=== PATIENT | male | born 1960 | race African-American/Black ===

== ENCOUNTER 2024-03-07 10:15 | Outpatient (CLI) | payer MEDICARE, OTHER | END 2024-03-07 10:16 | disposition home or self-care (01) | LOC: CSHWCC 10:15 | PROVIDERS: ATTEND Family Medicine | DX: L97.215 Non-pressure chronic ulcer of right calf with muscle involvement without evidence of necrosis (principal); L97.113 Non-pressure chronic ulcer of right thigh with necrosis of muscle; F10.20 Alcohol dependence, uncomplicated; I73.9 Peripheral vascular disease, unspecified; Z89.511 Acquired absence of right leg below knee | CPT/HCPCS: 97597; 97598 ==

== ENCOUNTER 2024-03-14 15:26 | Outpatient (CLI) | payer OTHER | END 2024-03-14 15:27 | disposition home or self-care (01) | LOC: CSHWCC 15:26 | PROVIDERS: ATTEND Nurse Practitioner Family | DX: L97.215 Non-pressure chronic ulcer of right calf with muscle involvement without evidence of necrosis (principal); L97.113 Non-pressure chronic ulcer of right thigh with necrosis of muscle; F10.20 Alcohol dependence, uncomplicated; I73.9 Peripheral vascular disease, unspecified; Z89.511 Acquired absence of right leg below knee | CPT/HCPCS: 11042; 11045 ==

== ENCOUNTER 2024-03-21 15:24 | Outpatient (CLI) | payer OTHER | END 2024-03-21 15:25 | disposition home or self-care (01) | LOC: CSHWCC 15:24 | PROVIDERS: ATTEND Family Medicine | DX: L97.215 Non-pressure chronic ulcer of right calf with muscle involvement without evidence of necrosis (principal); L97.113 Non-pressure chronic ulcer of right thigh with necrosis of muscle; I73.9 Peripheral vascular disease, unspecified; F10.20 Alcohol dependence, uncomplicated; Z89.511 Acquired absence of right leg below knee | CPT/HCPCS: 97597; 97598 ==

== ENCOUNTER 2024-04-12 15:20 | Outpatient (CLI) | payer OTHER | END 2024-04-12 15:21 | disposition home or self-care (01) | LOC: CSHWCC 15:20 | PROVIDERS: ATTEND Nurse Practitioner Family | DX: L97.212 Non-pressure chronic ulcer of right calf with fat layer exposed (principal); L97.112 Non-pressure chronic ulcer of right thigh with fat layer exposed; I73.9 Peripheral vascular disease, unspecified; F10.20 Alcohol dependence, uncomplicated; Z89.511 Acquired absence of right leg below knee | CPT/HCPCS: 11043; 11046 ==

== ENCOUNTER 2024-04-18 11:14 | Outpatient (CLI) | payer OTHER | END 2024-04-18 11:15 | disposition home or self-care (01) | LOC: CSHWCC 11:14 | PROVIDERS: ATTEND Nurse Practitioner Family | DX: L97.212 Non-pressure chronic ulcer of right calf with fat layer exposed (principal); L97.112 Non-pressure chronic ulcer of right thigh with fat layer exposed; I73.9 Peripheral vascular disease, unspecified; F10.20 Alcohol dependence, uncomplicated; Z89.511 Acquired absence of right leg below knee | CPT/HCPCS: 11042; 11045 ==

== ENCOUNTER 2024-04-25 12:03 | Outpatient (CLI) | payer OTHER | END 2024-04-25 12:04 | disposition home or self-care (01) | LOC: CSHWCC 12:03 | PROVIDERS: ATTEND Preventive Medicine Undersea and Hyperbaric Medicine | DX: L97.212 Non-pressure chronic ulcer of right calf with fat layer exposed (principal); L97.112 Non-pressure chronic ulcer of right thigh with fat layer exposed; I73.9 Peripheral vascular disease, unspecified; F10.20 Alcohol dependence, uncomplicated; Z89.511 Acquired absence of right leg below knee | CPT/HCPCS: 99214; G0463 ==

== ENCOUNTER 2024-05-03 11:45 | Outpatient (CLI) | payer OTHER | END 2024-05-03 11:46 | disposition home or self-care (01) | LOC: CSHWCC 11:45 | PROVIDERS: ATTEND Nurse Practitioner Family | DX: Z47.81 Encounter for orthopedic aftercare following surgical amputation (principal); L97.212 Non-pressure chronic ulcer of right calf with fat layer exposed; L97.112 Non-pressure chronic ulcer of right thigh with fat layer exposed; I73.9 Peripheral vascular disease, unspecified; F10.20 Alcohol dependence, uncomplicated; Z89.511 Acquired absence of right leg below knee ==

== ENCOUNTER 2024-05-06 10:34 | Outpatient (CLI) | payer OTHER | END 2024-05-06 10:35 | disposition home or self-care (01) | LOC: CSHWCC 10:34 | PROVIDERS: ATTEND Nurse Practitioner Family | DX: L97.212 Non-pressure chronic ulcer of right calf with fat layer exposed (principal); L97.112 Non-pressure chronic ulcer of right thigh with fat layer exposed; F10.20 Alcohol dependence, uncomplicated; I73.9 Peripheral vascular disease, unspecified; Z89.511 Acquired absence of right leg below knee | CPT/HCPCS: 99213; G0463 ==

== ENCOUNTER 2024-05-13 10:13 | Outpatient (CLI) | payer OTHER | END 2024-05-13 10:14 | disposition home or self-care (01) | LOC: CSHWCC 10:13 | PROVIDERS: ATTEND Nurse Practitioner Family | DX: L97.212 Non-pressure chronic ulcer of right calf with fat layer exposed (principal); L97.112 Non-pressure chronic ulcer of right thigh with fat layer exposed; F10.20 Alcohol dependence, uncomplicated; I73.9 Peripheral vascular disease, unspecified; Z89.511 Acquired absence of right leg below knee | CPT/HCPCS: 99211; G0463 ==

== ENCOUNTER 2024-05-20 08:36 | Outpatient (CLI) | payer OTHER | END 2024-05-20 08:37 | disposition home or self-care (01) | LOC: CSHWCC 08:36 | PROVIDERS: ATTEND Nurse Practitioner Family | DX: L97.212 Non-pressure chronic ulcer of right calf with fat layer exposed (principal); L97.112 Non-pressure chronic ulcer of right thigh with fat layer exposed; I73.9 Peripheral vascular disease, unspecified; F10.20 Alcohol dependence, uncomplicated; Z89.511 Acquired absence of right leg below knee | CPT/HCPCS: 99212; G0463 ==

== ENCOUNTER 2024-05-30 13:11 | Outpatient (CLI) | payer OTHER | END 2024-05-30 13:12 | disposition home or self-care (01) | LOC: CSHWCC 13:11 | PROVIDERS: ATTEND Nurse Practitioner Family | DX: L97.212 Non-pressure chronic ulcer of right calf with fat layer exposed (principal); L97.112 Non-pressure chronic ulcer of right thigh with fat layer exposed; I73.9 Peripheral vascular disease, unspecified; F10.20 Alcohol dependence, uncomplicated; Z89.511 Acquired absence of right leg below knee | CPT/HCPCS: 11043; 97597 ==

== ENCOUNTER 2024-07-20 10:23 | Outpatient (CLI) | payer MEDICAID, OTHER | END 2024-07-20 10:24 | disposition home or self-care (01) | LOC: CSHWCC 10:23 | PROVIDERS: ATTEND Nurse Practitioner Family | DX: L97.112 Non-pressure chronic ulcer of right thigh with fat layer exposed (principal); L97.212 Non-pressure chronic ulcer of right calf with fat layer exposed; I73.9 Peripheral vascular disease, unspecified; F10.20 Alcohol dependence, uncomplicated; Z89.511 Acquired absence of right leg below knee | CPT/HCPCS: 11042; 11043; 87070; 87077; 87186; 87205 ==

== ENCOUNTER 2024-07-27 09:00 | Outpatient (CLI) | payer OTHER | END 2024-07-27 09:01 | disposition home or self-care (01) | LOC: CSHWCC 09:00 | PROVIDERS: ATTEND Nurse Practitioner Family | DX: L97.212 Non-pressure chronic ulcer of right calf with fat layer exposed (principal); L97.112 Non-pressure chronic ulcer of right thigh with fat layer exposed; I73.9 Peripheral vascular disease, unspecified; F10.20 Alcohol dependence, uncomplicated; Z89.511 Acquired absence of right leg below knee | CPT/HCPCS: 11042; 11043 ==

== ENCOUNTER 2024-08-09 10:42 | Outpatient (CLI) | payer OTHER | END 2024-08-09 10:43 | disposition home or self-care (01) | LOC: CSHWCC 10:42 | PROVIDERS: ATTEND Nurse Practitioner Family | DX: L97.212 Non-pressure chronic ulcer of right calf with fat layer exposed (principal); L97.112 Non-pressure chronic ulcer of right thigh with fat layer exposed; I73.9 Peripheral vascular disease, unspecified; F10.20 Alcohol dependence, uncomplicated; Z89.511 Acquired absence of right leg below knee | CPT/HCPCS: 11042 ==

== ENCOUNTER 2024-08-16 09:05 | Outpatient (CLI) | payer OTHER | END 2024-08-16 09:06 | disposition home or self-care (01) | LOC: CSHWCC 09:05 | PROVIDERS: ATTEND Nurse Practitioner Family | DX: L97.212 Non-pressure chronic ulcer of right calf with fat layer exposed (principal); L97.112 Non-pressure chronic ulcer of right thigh with fat layer exposed; I73.9 Peripheral vascular disease, unspecified; F10.20 Alcohol dependence, uncomplicated; Z89.511 Acquired absence of right leg below knee | CPT/HCPCS: 11042 ==

== ENCOUNTER 2024-09-05 13:24 | Outpatient (CLI) | payer OTHER | END 2024-09-05 13:25 | disposition home or self-care (01) | LOC: CSHWCC 13:24 | PROVIDERS: ATTEND Nurse Practitioner Family | DX: L97.112 Non-pressure chronic ulcer of right thigh with fat layer exposed (principal); I73.9 Peripheral vascular disease, unspecified; F10.20 Alcohol dependence, uncomplicated; Z89.511 Acquired absence of right leg below knee | CPT/HCPCS: 99212; G0463 ==

== ENCOUNTER 2024-09-19 09:48 | Outpatient (CLI) | payer OTHER, MEDICARE | END 2024-09-19 09:49 | disposition home or self-care (01) | LOC: CSHWCC 09:48 | PROVIDERS: ATTEND Nurse Practitioner Family | DX: I73.9 Peripheral vascular disease, unspecified (principal); F10.20 Alcohol dependence, uncomplicated; Z87.2 Personal history of diseases of the skin and subcutaneous tissue; Z89.511 Acquired absence of right leg below knee | CPT/HCPCS: 99212; G0463 ==